=== PATIENT | male | born 1975 | race Caucasian/White ===

== ENCOUNTER → 2022-07-09 07:55 | Outpatient (CLI) | payer BC, SELFPAY ==
--- NOTE | ~2022-07-09 | US_ITS ---
EXAMINATION: US soft tissue abdomen DATE: 07/09/2022 08:18 INDICATION: Periumbilical abdominal pain. TECHNIQUE: Multiple grayscale and Doppler ultrasound images of the abdomen were obtained. COMPARISON: None FINDINGS: There is no abnormal mass or hernia in the patient's area of concern. IMPRESSION: 1. No abnormal mass or hernia in the patient's area of concern in the periumbilical region. Reviewed, dictated and finalized at location A. IMPRESSION: 1. No abnormal mass or hernia in the patient's area of concern in the periumbil ical region.
== END ==
PROVIDERS: PCP Nurse Practitioner Family; Visit Provider Nurse Practitioner Family
DX: R10.33 Periumbilical pain (principal)
CPT/HCPCS: 76705

== ENCOUNTER 2022-09-09 16:29 | Emergency (ER) | payer BC, SELFPAY ==
--- NOTE | 2022-09-09 16:34 | ED.URI ---
HPI - URI/Sore Throat General Chief Complaint: Upper Respiratory Infection Stated Complaint: headache, congestion, cough Time Seen by Provider: 09/09/22 16:40 Source: patient, RN notes reviewed and old records reviewed Mode of arrival: ambulatory Limitations: no limitations History of Present Illness HPI Narrative: 47-year-old male presents to the [facility] with complaints of headache, congestion, postnasal drip. Patient states that started Tuesday night. Was in bed all day yesterday. Tried going to work today and did not feel well. Has taken TheraFlu. [place] feverish Tuesday night. No fever today. Patient nontoxic in appearance. Related Data Home Medications Medication Instructions Recorded Confirmed glipizide 5 mg tablet 5 mg PO BID 09/09/22 09/09/22 insulin glargine 100 unit/mL (3 30 unit subcut HS 09/09/22 09/09/22 mL) subcutaneous pen (Lantus Solostar U-100 Insulin) insulin lispro 100 unit/mL See Rx Instructions .Route .COMPLEX 09/09/22 09/09/22 subcutaneous pen metformin 500 mg tablet,extended 500 mg PO DAILY 09/09/22 09/09/22 release 24 hr simvastatin 10 mg tablet 10 mg PO DAILY 09/09/22 09/09/22 Allergies Allergy/AdvReac Type Severity Reaction Status Date / Time No Known Allergies Allergy Mild Unverified 06/11/09 19:09 ? shellfish Allergy Mild Rash Uncoded 09/09/22 16:42 Review of Systems Review of Systems: All systems reviewed & are unremarkable except as noted in HPI and below Constitutional: Constitutional: Reports as per HPI Eyes: Eyes: Reports no additional eye complaints ENT: Reports as per HPI Cardiovascular: Cardiovascular: Reports no additional cardiovascular complaints, Denies chest pain and Denies dyspnea Respiratory: Respiratory: Reports no additional respiratory complaints, Denies chest congestion, Denies cough and Denies dyspnea Gastrointestinal: Gastrointestinal: Reports no additional gastrointestinal complaints Musculoskeletal: Musculoskeletal: Reports no additional musculoskeletal complaints Integumentary/Breasts: Skin/Breast: Reports system reviewed and no additional complaints, except as docu Neurologic: Reports system reviewed and no additional complaints, except as documented Psychiatric: Psychiatric: Reports no additional psychiatric complaints Allergic/Immunologic: Allergic/Immunologic: Reports no additional allergic/immunologic complaints PMFSH Comments At the time of my signature, I reviewed and agree with the nursing past medical, surgical, social, and family history. There is no relevant family history pertinent to the patient complaint. Exam Const: General: cooperative, healthy appearing, comfortable, no acute distress, well developed, alert and average body habitus Nutritional Appearance: average body habitus and well nourished Orientation/consciousness: patient oriented x3 Limitations: no limitations HENMT: Head: normal to inspection Ears: hearing grossly normal bilaterally, external ears normal and TM's normal bilaterally Face/Nose/Sinus: Normal external nose present, Normal nares present, Normal nasal mucous membranes and turbinates present and normal facial exam Face and sinus: normal facial exam Mouth: Yes Normal oral and palatal mucosa present, Yes lip normal and Yes moist mucous membranes Throat: posterior oropharynx normal, uvula midline and postnasal drainage Eyes: General: appearance normal, both eyes and all related structures Alignment and Position: alignment normal Periorbital: periorbital findings normal Conjunctivae: conjunctivae normal Pupils: Equal, round and reactive pupils present EOM: EOMs intact bilaterally Neck: Neck: normal visual inspection, full ROM, no lymphadenopathy and no meningeal signs Chest: Chest palpation & inspection: normal inspection of the chest Resp: Effort & Inspection: normal respiratory effort and able to speak in complete sentences Auscultation: clear to auscultation bilaterally, no crackles, no rale
[2022-09-09 16:40] VITALS: BP 117/85; PULSE 89; RESP 16; TEMP 36.1; O2SAT 99
== END 2022-09-09 16:53 | disposition home or self-care (01) ==
PROVIDERS: Emergency Provider Nurse Practitioner
DX: J06.9 Acute upper respiratory infection, unspecified (principal); R09.82 Postnasal drip
CPT/HCPCS: 99211; G0463

== ENCOUNTER 2023-06-29 15:50 | Emergency (ER) | payer BC, SELFPAY ==
--- NOTE | 2023-06-29 15:54 | ED.URI ---
HPI - URI/Sore Throat General Chief Complaint: Upper Respiratory Infection Stated Complaint: Chest Congestion and Right Earache Source: patient and RN notes reviewed Mode of arrival: ambulatory Limitations: no limitations History of Present Illness HPI Narrative: Patient is a 47-year-old male who presents to the [facility] with complaints of right ear pain and congestion. Patient states that on Tuesday he developed some nasal congestion and drainage that has continued to worsen. He reports a mild sore throat. States that he developed ear pain yesterday that worsened today. He denies ear drainage. Denies chest pain or shortness of breath. Denies abdominal pain, nausea, vomiting, diarrhea. Related Data Home Medications Medication Instructions Recorded Confirmed glipizide 5 mg tablet 5 mg PO BID 09/09/22 09/09/22 insulin glargine 100 unit/mL (3 30 unit subcut HS 09/09/22 09/09/22 mL) subcutaneous pen (Lantus Solostar U-100 Insulin) insulin lispro 100 unit/mL See Rx Instructions .Route .COMPLEX 09/09/22 09/09/22 subcutaneous pen metformin 500 mg tablet,extended 500 mg PO DAILY 09/09/22 09/09/22 release 24 hr simvastatin 10 mg tablet 10 mg PO DAILY 09/09/22 09/09/22 Allergies Allergy/AdvReac Type Severity Reaction Status Date / Time No Known Allergies Allergy Mild Unverified 06/11/09 19:09 ? shellfish Allergy Mild Rash Uncoded 09/09/22 16:42 Review of Systems Review of Systems: CONSTITUTIONAL: Denies fever, chills, or sweats. EYES: Denies visual changes, redness, or discharge. ENT: Reports otalgia and sore throat. Reports nasal congestion. CARDIOVASCULAR: Denies chest pain, palpitations, or edema. RESPIRATORY: Denies cough or dyspnea. GASTROINTESTINAL: Denies abdominal pain, nausea, vomiting, or diarrhea. GENITOURINARY: Denies dysuria or hematuria. SKIN: Denies rash or itching. MUSCULOSKELETAL: Denies back pain, joint pain, or myalgia. NEUROLOGIC: Denies headache, numbness, or weakness. Pertinent positives per HPI. PMFSH Comments At the time of my signature, I reviewed and agree with the nursing past medical, surgical, social, and family history. There is no relevant family history pertinent to the patient complaint. Exam Narrative: GENERAL: This is a well-nourished, well-developed patient, in no apparent distress. HEAD: normocephalic, atraumatic. EYES: PERRL. Sclera clear/white. Vision is grossly intact. EARS: External ears normal, auditory canals clear and without drainage, TMs normal without perforation on left. TM opaque on right. Hearing grossly intact. NOSE: External nose normal with no obvious nasal discharge, nares without redness, no rhinorrhea. THROAT: Mucous membranes moist, Oropharyngeal erythema without exudate or ulceration NECK: Neck supple, non-tender without lymphadenopathy, masses or thyromegaly. CARDIOVASCULAR: Regular rate and rhythm without murmurs, gallops, or rubs. RESPIRATORY: Clear to auscultation. Breath sounds equal bilaterally. No wheezes, rales, or rhonchi. GASTROINTESTINAL: Abdomen soft, non-tender, nondistended. Bowel sounds are active. No hepato-splenomegaly, or palpable masses. No guarding. SKIN: warm, intact with no suspicious lesions or rash, good texture and turgor. NEURO: awake, alert, and oriented to person, place and time. There were no obvious focal neurologic abnormalities. Course Course Level of Care: Express Care Visit Vital Signs Vital signs: Vital Signs Temperature 97.8 F 06/29/23 15:57 Pulse Rate 80 06/29/23 15:57 Respiratory Rate 16 06/29/23 15:57 Blood Pressure 119/77 06/29/23 15:57 Pulse Oximetry 100 06/29/23 15:57 Temperature 97.8 F 06/29/23 15:57 Pulse Rate 80 06/29/23 15:57 Respiratory Rate 16 06/29/23 15:57 Blood Pressure 119/77 06/29/23 15:57 Pulse Oximetry 100 06/29/23 15:57 Reviewed MDM - URI/Sore Throat MDM Narrative Medical decision making narrative: Take antibiotics as directed. Amena
[2023-06-29 15:57] VITALS: BP 119/77; PULSE 80; RESP 16; TEMP 36.6; O2SAT 100
== END 2023-06-29 16:10 | disposition home or self-care (01) ==
PROVIDERS: Emergency Provider Nurse Practitioner
DX: H65.01 Acute serous otitis media, right ear (principal)
CPT/HCPCS: 99213; G0463

== ENCOUNTER 2024-02-08 08:59 | Emergency (ER) | payer BC, SELFPAY ==
--- NOTE | ~2024-02-08 | XR_ITS ---
EXAMINATION: XR chest 2V DATE: 02/08/2024 09:58 INDICATION: Cough. Shortness of breath. TECHNIQUE: Frontal and lateral views of the chest were obtained. COMPARISON: None. FINDINGS: There is no pneumonia, pleural effusion, or pneumothorax. The heart size is normal. IMPRESSION: 1. No acute cardiopulmonary disease. Reviewed, dictated and finalized at location A.
[2024-02-08 09:08] VITALS: BP 118/84; PULSE 99; RESP 16; TEMP 36.2; O2SAT 99
--- NOTE | 2024-02-08 09:45 | ED.URI ---
HPI - URI/Sore Throat General Chief Complaint: Upper Respiratory Infection Stated Complaint: COUGH/CONGESTION/CHEST PAIN Time Seen by Provider: 02/08/24 09:38 Source: patient and RN notes reviewed Mode of arrival: ambulatory Limitations: no limitations History of Present Illness HPI Narrative: Patient presents today complaining of a one-week history of chest congestion, cough, chest wall pain that has worsened over the past 3-4 days. Patient was diagnosed with influenza 1 week ago and states most of his symptoms have resolved aside from the cough and congestion. He does report some mild shortness of breath as well. Denies fever. He has been taking Mucinex D in TherEeBrialu with mild relief. Reports asthma as a child, but no problems with this as an adult. He does not smoke. History of diabetes. Related Data Home Medications Medication Instructions Recorded Confirmed dapagliflozin propanediol 5 mg 5 mg PO DAILY 02/08/24 02/08/24 tablet diclofenac sodium 75 mg 75 mg PO BID 02/08/24 02/08/24 tablet,delayed release Allergies Allergy/AdvReac Type Severity Reaction Status Date / Time No Known Allergies Allergy Mild Verified 02/08/24 09:15 ? shellfish Allergy Mild Rash Uncoded 02/08/24 09:15 Review of Systems Review of Systems: CONSTITUTIONAL: Denies body aches, fever, chills, or sweats. EYES: Denies visual changes, redness, or discharge. ENT: Denies rhinorrhea, congestion, sore throat, or otalgia. CARDIOVASCULAR: Denies chest pain, palpitations, or edema. RESPIRATORY: + cough, chest congestion, chest wall pain, shortness of breath. GASTROINTESTINAL: Denies abdominal pain, nausea, vomiting, or diarrhea. GENITOURINARY: Denies dysuria or hematuria. SKIN: Denies rash, itching, or wounds. MUSCULOSKELETAL: Denies back pain, joint pain, or myalgia. NEUROLOGIC: Denies headache, numbness, tingling, or weakness. PSYCH: Denies depression or anxiety. [facility] Past Medical History Medical History (Updated 02/08/24 @ 10:16 by Gracia Aragon, [employer], ) Diabetes Comments At time of signature, I have reviewed and agree with nursing past medical, surgical, social and family history unless otherwise noted. Please see nursing chart for further information. There is no relevant family history pertinent to the presenting complaint Exam Narrative: GENERAL: Well-appearing, well-nourished, and in no acute distress. HEAD: Normocephalic, atraumatic. EYES: EOMI. No redness or drainage. Conjunctivae normal. ENT: Mucous membranes pink and moist. Nares clear. No rhinorrhea. TMs normal bilaterally. Throat normal. Uvula midline. NECK: Normal AROM. Supple. No lymphadenopathy. CHEST: No respiratory distress. Slight expiratory wheeze in the left lower lobe, otherwise clear HEART: Regular rate and rhythm. No murmur appreciated. EXTREMITIES: Normal range of motion. No edema. SKIN: Warm, dry, no rash. Capillary refill normal. Normal skin turgor. NEURO: No focal deficits. Alert and oriented x3. Gait steady. PSYCH: Normal affect. No signs of depression or anxiety. Course Course Level of Care: Express Care Visit Vital Signs Vital signs: Vital Signs Oxygen Delivery Room Air 02/08/24 09:07 Temperature 97.2 F L 02/08/24 09:08 Pulse Rate 99 02/08/24 09:08 Respiratory Rate 16 02/08/24 09:08 Blood Pressure 118/84 02/08/24 09:08 Pulse Oximetry 99 02/08/24 09:08 Oxygen Delivery Room Air 02/08/24 09:07 Reviewed MDM - URI/Sore Throat MDM Narrative Medical decision making narrative: Chest x-ray negative. Patient will be treated with prednisone and tessalon perles for his bronchitis. Anticipatory guidance given. Differential Diagnosis Differential diagnosis: Likely upper respiratory infection, viral infection, bronchitis and other (Pneumonia) Imaging Data Radiologist's impression: ITS Impressions Chest X-Ray 02/08/24 10:04 IMPRESSION: 1. No acute cardiopulmonary disease.
[2024-02-08 10:22] VITALS: BP 120/72; PULSE 88; RESP 18; O2SAT 99
== END 2024-02-08 10:22 | disposition home or self-care (01) ==
PROVIDERS: Emergency Provider Nurse Practitioner
DX: J40 Bronchitis, not specified as acute or chronic (principal); E11.9 Type 2 diabetes mellitus without complications
CPT/HCPCS: 71046; 99213; G0463

== ENCOUNTER 2024-10-10 14:17 | Emergency (ER) | payer BC, SELFPAY ==
[2024-10-10 14:58] VITALS: BP 125/78; PULSE 94; RESP 16; TEMP 36.3; O2SAT 100
--- NOTE | 2024-10-10 15:50 | ED.URI ---
HPI - URI/Sore Throat General Chief Complaint: Upper Respiratory Infection Stated Complaint: CONGESTION/BODY ACHES/SINUS Time Seen by Provider: 10/10/24 15:50 Source: patient, RN notes reviewed and old records reviewed Mode of arrival: ambulatory Limitations: no limitations History of Present Illness HPI Narrative: 49 year old male presents to express care with complaints of sinus congestion with cough and body aches. Patient reports that he has had some sinus congestion on and off for the past month with symptoms increased that he can't breath out of his nose. Patient reports that he did have some chills at the onset of his symptoms but has not had any lately. Patient reports that he has taken Sudafed, DayQuil and NyQuil for his symptojtn MD elicited complaint: cough, nasal congestion and sinus pain Onset (ago): month(s) (1 month increased last few days) Severity: moderate Description of mucous: yellow Able to tolerate fluids by mouth: Yes Treatments prior to arrival: other (Sudafed, NyQuil and DayQuil ) Related Data Home Medications ?Medication ?Instructions ?Recorded ?Confirmed ?Last Taken ?Type dapagliflozin propanediol 10 mg mg 10/10/24 Unknown History tablet tirzepatide 2.5 mg/0.5 mL mg subcut 10/10/24 Unknown History subcutaneous pen injector (Mounjaro) Allergies Allergy/AdvReac Type Severity Reaction Status Date / Time ? shellfish Allergy Mild Rash Uncoded 02/08/24 09:15 Review of Systems Review of Systems: CONSTITUTIONAL: Reports some malaise, no recent chills, sweats, or fever. EYES: Denies visual changes, redness, or discharge. ENT: Reports rhinorrhea, congestion, sinus pain,no otalgia and no sore throat. CARDIOVASCULAR: Denies chest pain, palpitations, or edema. RESPIRATORY: Reports dry cough.? Denies dyspnea. GASTROINTESTINAL: Denies abdominal pain, nausea, vomiting, diarrhea SKIN: Denies rash or itching. MUSCULOSKELETAL:some myalgia. NEUROLOGIC: Denies headache. All systems reviewed & are unremarkable except as noted in HPI and below PMFSH Past Medical History Medical History Bronchitis Chronic upper back pain Chronic neck pain Diabetes Surgical History Surgical History History of mandibular surgery Social History Social History Smoking status: Never smoker Alcohol intake: current Alcohol use details: social Substance use type: does not use Living arrangements: with family Gender identity (if verbalized by the patient): Male Comments At time of signature, agree with nursing past medical, surgical, social and family history. There is no relevant family history pertinent to the presenting complaint Exam Narrative: GENERAL: Well-appearing, well-nourished, and in no acute distress. HEAD: Normocephalic EYES: PERRLA, conjunctivae clear ENT: Nares red swolen,, turbinates edematous and erythematous, yellow discharge sinus pressure.. Mucous membranes moist. TM pearly pa with dull light reflex bilaterally; no tragal tenderness. Oropharynx erythematous without lesions. Tonsils not enlarged and without exudate, no drooling, no hoarseness, no trismus, uvula midline.PND NECK: Supple. No lymphadenopathy CHEST: Clear to auscultation, breath sounds equal. No wheezing, rhonchi, rales, or stridor. No respiratory distress, speaks in full sentences.SAO2 100% occasional dry cough HEART: Regular rate and rhythm. No murmur heard. SKIN: Warm, dry, no rash. NEURO: Alert and oriented x3. PSYCH: Normal mood and affect Course Course Emergency Course: Patient is aware of diagnosis, understands and agrees to treatment plan.? Anticipatory guidance given.? Patient agrees to follow-up as directed and is aware of reasons to seek care at the emergency department. Portions of this record may have been created with voice recognition software Level of Care: Express Care Visit Vital Signs Vital signs: Vital Signs Temperature 36.3 C L 10/10/24 14:58 Pulse Rate 94 10/10/24 14:58 Respiratory Rate 16 10/10/24 14:58 Blood Pressure 125/78 10/10/24 14:58 Pulse Oximetry 100 10/10/24 14:58 Temperature 36.3 C L 10/10/24 14:58 Pulse Rate 94 10/10/24 14:58 Respiratory Rate 16 10/10/24 14:58 Blood Pressure 125/78 10/10/24 14:58 Pulse Oximetry 100 10/10/24 14:58 Reviewed MDM - URI/Sore Throat MDM Narrative Medical decision making narrative: Differential diagnosis considered: Goetz virus, strep pharyngitis, allergic rhinitis, upper respiratory tract infection, sinusitis, rhinosinusitis, nasopharyngitis. viral pharyngitis, otitis media, otitis externa, pneumonia, bronchitis, viral cough syndrome, viral syndrome, and influenza.? Exam findings show no acute concerns or changes; patient is non-toxic appearing and is in no distress.? Patient is appropriate for outpatient treatment and follow-up. Differential Diagnosis Differential diagnosis: Likely upper respiratory infection, sinusitis, viral infection and other (facial pressure) Medical Records Attestation: I reviewed the patient's medical records. Lab Data Attestation: I reviewed the patient's lab results. Critical Care Time Critical Care Time Critical Care Time: No Discharge Plan Discharge Clinical Impression: Sinusitis, acute Qualifiers: Sinusitis location: pansinusitis Recurrence: not specified as recurrent Qualified Code(s): J01.40 - Acute pansinusitis, unspecified Patient Disposition: Home, Self-Care Condition: Stable Instructions: Antibiotic Form, Sinusitis (ED) Additional Instructions: Increase fluids especially juices and water [id number] cough and cold medicine of your choice for your symptoms Steroids as directed--take with food monitor your blood sugars while taking heat to the face 20-30 minutes 4-6 times a day for pain Salt water gargles, throat lozenges or throat sprays as desired Antibiotic as directed--finished the medication Tylenol or ibuprofen for any fever pain Zyrtec Claritin or Erinn daily If your symptoms persist, change or worsen significantly before you can contact your personal physician then please, without delay, go to the emergency department for further evaluation. Follow-up with PCP in 7-10 days or sooner if needed Patient Language: Citizen Of [place] Prescriptions: New amoxicillin-pot clavulanate 875-125 mg tablet 1 tablet PO Q12H Qty: 20 0RF methylprednisolone [Medrol (Roderick)] 4 mg tablets,dose pack See Rx Instructions .ROUTE .COMPLEX Qty: 21 0RF Rx Instructions: orally per package directions No Action dapagliflozin propanediol 10 mg tablet Mounjaro 2.5 mg/0.5 mL pen injector SUBCUT Follow-up/Referrals: UNKNOWN,DOCTOR [Primary Care Provider] - Time of Disposition: 16:04 Quality Lizeth Coma Scale Eyes: Open Verbal: Oriented and Alert Motor: Follows Commands Lizeth Coma Total Score: 15
--- NOTE | 2024-10-10 15:50 | ED.URI ---
HPI - URI/Sore Throat General Chief Complaint: Upper Respiratory Infection Stated Complaint: CONGESTION/BODY ACHES/SINUS Time Seen by Provider: 10/10/24 15:50 Source: patient, RN notes reviewed and old records reviewed Mode of arrival: ambulatory Limitations: no limitations Related Data Home Medications ?Medication ?Instructions ?Recorded ?Confirmed ?Last Taken ?Type dapagliflozin propanediol 10 mg mg 10/10/24 Unknown History tablet tirzepatide 2.5 mg/0.5 mL mg subcut 10/10/24 Unknown History subcutaneous pen injector (Mounjaro) Allergies Allergy/AdvReac Type Severity Reaction Status Date / Time ? shellfish Allergy Mild Rash Uncoded 02/08/24 09:15 Review of Systems Review of Systems: All systems reviewed & are unremarkable except as noted in HPI and below [facility] Past Medical History Medical History (Updated 10/10/24 @ 16:01 by Rosie Martinez NP) Diabetes Course Vital Signs Vital signs: Vital Signs Temperature 36.3 C L 10/10/24 14:58 Pulse Rate 94 10/10/24 14:58 Respiratory Rate 16 10/10/24 14:58 Blood Pressure 125/78 10/10/24 14:58 Pulse Oximetry 100 10/10/24 14:58 Temperature 36.3 C L 10/10/24 14:58 Pulse Rate 94 10/10/24 14:58 Respiratory Rate 16 10/10/24 14:58 Blood Pressure 125/78 10/10/24 14:58 Pulse Oximetry 100 10/10/24 14:58 Discharge Plan Discharge Clinical Impression: Sinusitis, acute Qualifiers: Sinusitis location: pansinusitis Recurrence: non-recurrent Qualified Code(s): J01.40 - Acute pansinusitis, unspecified Patient Disposition: Home, Self-Care Condition: Stable Instructions: Antibiotic Form, Sinusitis (ED) Additional Instructions: Increase fluids especially juices and water [id number] cough and cold medicine of your choice for your symptoms Steroids as directed--take with food monitor your blood sugars while taking heat to the face 20-30 minutes 4-6 times a day for pain Salt water gargles, throat lozenges or throat sprays as desired Antibiotic as directed--finished the medication Tylenol or ibuprofen for any fever pain Zyrtec Claritin or Erinn daily If your symptoms persist, change or worsen significantly before you can contact your personal physician then please, without delay, go to the emergency department for further evaluation. Follow-up with PCP in 7-10 days or sooner if needed Patient Language: Georgian Prescriptions: New amoxicillin-pot clavulanate 875-125 mg tablet 1 tablet PO Q12H Qty: 20 0RF methylprednisolone [Medrol (Roderick)] 4 mg tablets,dose pack See Rx Instructions .ROUTE .COMPLEX Qty: 21 0RF Rx Instructions: orally per package directions No Action dapagliflozin propanediol 10 mg tablet Mounjaro 2.5 mg/0.5 mL pen injector SUBCUT Follow-up/Referrals: UNKNOWN,DOCTOR [Primary Care Provider] - Time of Disposition: 16:04
== END 2024-10-10 16:13 | disposition home or self-care (01) ==
PROVIDERS: Emergency Provider Registered Nurse
DX: J01.40 Acute pansinusitis, unspecified (principal); E11.9 Type 2 diabetes mellitus without complications
CPT/HCPCS: 99213; G0463